=== PATIENT | female | born 1950 | race Caucasian/White ===

== ENCOUNTER → 2021-06-18 | Outpatient (CLI) | payer MEDICARE, OTHER | LOC: LAB SHORT 11:40 | DX: M79.604 Pain in right leg (principal) | CPT/HCPCS: 85379 ==

== ENCOUNTER 2024-01-02 08:58 | Day surgery (SDC) | payer MEDICARE, OTHER ==
[~2024-01-02] VITALS: Ht 156 cm; Wt 98.0 kg
[~2024-01-02 08:58] MED LIST: ALBU90OI INH; ATEN50 PO; ESTRADIOL42.5 GM; GABA300 PO; Lactated Ringer's 1,000 ML IV SCH; OMEPRAZOLE20 M2 PO; ROPI.25 PO; ZOCOR20 MG PO
[2024-01-02] MEDS ORDERED: SPIR25 PO (11:17)
[2024-01-02] MEDS ORDERED: ALEVAZOL56.7 G1 TOP (11:18)
[2024-01-02] MEDS ORDERED: SULTRIDS PO (11:19)
[2024-01-02] MEDS ORDERED: CALC.25 PO (11:22)
[2024-01-02] MEDS ORDERED: ASTEPRO AL205.5 MCG/ INH (11:22)
[2024-01-02] MEDS ORDERED: Flonase 0.05% N16 GM (11:23)
[2024-01-02 11:27] VITALS: BP 150/77
--- NOTE | 2024-01-02 11:45 | NUR ---
History, Chart, Medications and Allergies reviewed before start of procedure. Patient up to Ambulate independently. Gait steady. Pre-Op teaching done. Pt verbalizes understanding. Patient confirms NPO status and agrees with scheduled surgery. Patient States Post-Procedure ride home has been arranged.
[2024-01-02] MEDS ORDERED: Midazolam HCl 1MG / ML 2ML Vial ONE (12:15)
[2024-01-02] MEDS ORDERED: FentaNYL Citrate 50 MCG/ML 2 ML Injection ONE (12:15)
[2024-01-02] MEDS ORDERED: propofoL 0 ML IV ONE (12:15)
--- NOTE | 2024-01-02 12:18 | NUR ---
01/02/24 1218 Kelly Reich MONITOR INTACT WITH CONTINUOUS PULSE OXIMETRY, CONTINUOUS END TITAL CO2, AND INTERMITTENT BLOOD PRESSURE AND EKG. ANESTHESIA PER DR. ULLOA.
[2024-01-02] MEDS ORDERED: propofoL 20 ML IV ONE (12:33)
[2024-01-02 12:46] VITALS: BP 120/73
--- NOTE | 2024-01-02 13:15 | NUR ---
Discharge instructions reviewed with patient. Patient verbalizes understanding. Copy given to patient to take home. Patient States Post-Procedure ride home has been arranged. Discharged via wheelchair to private car for ride home.
== END 2024-01-02 13:15 | disposition home or self-care (01) ==
LOC: ORSCMMR 08:58 → ORD 10:30 → ORSCMMR 13:15
PROVIDERS: Internal Medicine Gastroenterology
PROC: 0DBN8ZX Excision of Sigmoid Colon, Via Natural or Artificial Opening Endoscopic, Diagnostic (ICD-10-PCS; principal; 2024-01-02 10:30)
DX: K62.5 Hemorrhage of anus and rectum (principal); K63.5 Polyp of colon; K57.30 Diverticulosis of large intestine without perforation or abscess without bleeding; I12.9 Hypertensive chronic kidney disease with stage 1 through stage 4 chronic kidney disease, or unspecified chronic kidney disease; N18.30 Chronic kidney disease, stage 3 unspecified; E78.00 Pure hypercholesterolemia, unspecified; E66.01 Morbid (severe) obesity due to excess calories; Z68.41 Body mass index [BMI] 40.0-44.9, adult; Z79.899 Other long term (current) drug therapy
CPT/HCPCS: 82947; 88305; J2250; J2704; J3010; J7120

== ENCOUNTER 2024-11-23 14:49 | Emergency (ER) | payer MEDICARE, OTHER ==
[~2024-11-23] VITALS: Ht 157.5 cm; Wt 90.7 kg
[~2024-11-23 14:49] MED LIST changes: +ALEVAZOL56.7 G1 TOP; +ASTEPRO AL205.5 MCG/ INH; +CALC.25 PO; +Flonase 0.05% N16 GM; -Lactated Ringer's 1,000 ML IV SCH; +SPIR25 PO; +SULTRIDS PO
[2024-11-23 14:58] VITALS: BP 157/87
[2024-11-23 15:26] LABS: BASOPHILS ABSOLUTE AUTO 0.04 K/mm3 (0.00-0.23); BASOPHILS PERCENT AUTO 0 % (0-2); EOSINOPHILS ABSOLUTE AUTO 0.03 K/mm3 (0.00-0.68); EOSINOPHILS PERCENT AUTO 0 % (0-6); Hematocrit 41.3 % (33.0-51.0); Hemoglobin 13.5 g/dL (11.5-16.0); IMMATURE GRAN ABSOLUTE AUTO 0.24 K/mm3 (0.00-0.10); IMMATURE GRAN PERCENT AUTO 1 % (0-1); LYMPHOCYTES ABSOLUTE AUTO 1.32 K/mm3 (0.84-5.20); LYMPHOCYTES PERCENT AUTO 7 % (21-46); MONOCYTES ABSOLUTE AUTO 1.18 K/mm3 (0.16-1.47); MONOCYTES PERCENT AUTO 7 % (4-13); Mean Corpuscular HGB Conc 32.7 g/dL (31.5-36.5); Mean Corpuscular Volume 86 fL (80-100); NEUTROPHILS ABSOLUTE AUTO 15.24 K/mm3 (1.96-9.15); NEUTROPHILS PERCENT AUTO 85 % (41-73); NRBC ABSOLUTE 0.00 K/mm3 (0.00-0.02); NRBC Auto 0.0 /100 WBC (0.0-0.2); Platelet Count 246 K/mm3 (150-400); RDW Coefficient Variation 14.8 % (11.7-14.2); RDW Standard Deviation 46.7 fL (35.1-46.3)
[2024-11-23 15:44] LABS: Alanine Aminotransfer (ALT/SGP 25.0 U/L (12-78); Albumin, Blood 3.6 g/dL (3.4-5.0); Albumin/Globulin Ratio 0.9 (0.8-1.8); Anion Gap 6.0 mmol/L (3-11); Aspartate Aminotrans (AST/SGOT 17.0 U/L (12-37); Bilirubin, Total 0.2 mg/dL (0.1-1.0); Blood Urea Nitrogen 34.0 mg/dL (8-24); CO2, Blood 29.0 mmol/L (21-32); Calcium, Blood 9.2 mg/dL (8.5-10.1); Chloride, Blood 106.0 mmol/L (98-108); Creatinine, Blood 0.92 mg/dL (0.40-1.00); Globulin, Blood 4.0 g/dL (2.2-4.0); Glucose, Blood 140.0 mg/dL (70-99); Potassium, Blood 4.3 mmol/L (3.5-5.5); Sodium, Blood 137.0 mmol/L (136-145); Total Protein, Blood 7.6 g/dL (6.4-8.2)
[2024-11-23] MEDS ORDERED: PROM25 PO (22:06)
== END 2024-11-23 22:23 | disposition home or self-care (01) ==
LOC: ER 14:49
PROVIDERS: Student in an Organized Health Care Education/Training Program
DX: H81.399 Other peripheral vertigo, unspecified ear (principal); I12.9 Hypertensive chronic kidney disease with stage 1 through stage 4 chronic kidney disease, or unspecified chronic kidney disease; N18.30 Chronic kidney disease, stage 3 unspecified; Z86.73 Personal history of transient ischemic attack (TIA), and cerebral infarction without residual deficits; Z79.899 Other long term (current) drug therapy; Z79.51 Long term (current) use of inhaled steroids
CPT/HCPCS: 70450; 70496; 70498; 80053; 84484; 85025; 93005; 93010; 99284-25; A9270; Q9967